=== PATIENT | male | born 1995 | race Caucasian/White ===

== ENCOUNTER 2017-05-08 11:47 | Emergency (ER) | payer OTHER ==
[~2017-05-08] VITALS: Ht 193 cm; Wt 136.0 kg
[~2017-05-08 11:47] MED LIST: DOXYCYC MONO100 M1 PO
[2017-05-08 13:10] VITALS: BP 124/75
== END 2017-05-08 13:18 | disposition home or self-care (01) | DRG 556 ==
LOC: ED 11:47
PROC: 2W3PX1Z Immobilization of Left Upper Leg using Splint (ICD-10-PCS; principal; 2017-05-08)
DX: M25.562 Pain in left knee (principal); M25.561 Pain in right knee; W20.8XXA Other cause of strike by thrown, projected or falling object, initial encounter; Y93.89 Activity, other specified; Y92.69 Other specified industrial and construction area as the place of occurrence of the external cause
CPT/HCPCS: L1830